=== PATIENT | female | born 1995 | race African-American/Black ===

== ENCOUNTER 2017-05-01 07:51 | Emergency (ER) | payer OTHER ==
[~2017-05-01] VITALS: Ht 172.7 cm; Wt 86.4 kg
[2017-05-01 08:17] VITALS: BP 146/92
[2017-05-01] MEDS ORDERED: ALBUTEROL SULFATE HFA 90 MCG/PUFF 8 GM INHALER IH ONE (09:00)
== END 2017-05-01 09:31 | disposition home or self-care (01) ==
LOC: EMS 07:53
DX: J40 Bronchitis, not specified as acute or chronic (principal)
CPT/HCPCS: 94640; 99283; J3535

== ENCOUNTER 2017-07-08 17:41 | Emergency (ER) | payer OTHER ==
[~2017-07-08] VITALS: Ht 172.7 cm; Wt 85.9 kg
[2017-07-08 18:40] VITALS: BP 150/62
== END 2017-07-08 19:00 | disposition home or self-care (01) ==
LOC: EMS 17:43
DX: L30.9 Dermatitis, unspecified (principal)
CPT/HCPCS: 99283

== ENCOUNTER 2017-08-18 18:47 | Emergency (ER) | payer OTHER ==
[~2017-08-18] VITALS: Ht 172.7 cm; Wt 77.3 kg
[2017-08-18 21:54] VITALS: BP 122/84
== END 2017-08-18 22:24 | disposition home or self-care (01) ==
LOC: EMS 18:48
DX: S93.401A Sprain of unspecified ligament of right ankle, initial encounter (principal); R03.0 Elevated blood-pressure reading, without diagnosis of hypertension; X58.XXXA Exposure to other specified factors, initial encounter; Y93.89 Activity, other specified; Y92.89 Other specified places as the place of occurrence of the external cause; Y99.8 Other external cause status
CPT/HCPCS: 29515; 99284

== ENCOUNTER 2017-09-13 17:46 | Emergency (ER) | payer OTHER ==
[~2017-09-13] VITALS: Ht 172.7 cm; Wt 89.0 kg
[2017-09-13] MEDS ORDERED: PredniSONE 20 MG TABLET PO ONE (19:15)
[2017-09-13 19:18] VITALS: BP 138/89
== END 2017-09-13 19:20 | disposition home or self-care (01) ==
LOC: EMS 17:46
DX: L30.9 Dermatitis, unspecified (principal)
CPT/HCPCS: 81025; 99283; J7512

== ENCOUNTER 2017-10-21 18:17 | Emergency (ER) | payer OTHER ==
[~2017-10-21] VITALS: Ht 172.7 cm; Wt 90.0 kg
[2017-10-21] MEDS ORDERED: DEXAMETHASONE 4 MG TABLET PO ONE (21:15)
[2017-10-21 21:53] VITALS: BP 134/72
== END 2017-10-21 22:02 | disposition home or self-care (01) ==
LOC: EMS 18:18
DX: L30.9 Dermatitis, unspecified (principal)
CPT/HCPCS: 99283; J8540